=== PATIENT | female | born 1955 | race African-American/Black ===

== ENCOUNTER 2017-06-01 15:07 | Emergency (ER) | payer MEDICARE ==
--- NOTE | 2017-06-01 19:08 | RAD ---
TWO VIEWS CHEST: Date: 06-01-17 Comparison: 07-20-16 History: Cough, congestion. FINDINGS: No pneumothorax, pleural fluid, focal consolidation or alveolar edema. There is stable prominence of the cardiac silhouette and atherosclerotic calcification of the aortic arch. Mid left lung zone granuloma noted, stable. IMPRESSION: Stable appearance of the chest - no acute findings. POS: [facility]
== END 2017-06-01 17:49 | disposition home or self-care (01) ==
LOC: ERS 15:07
DX: J30.9 Allergic rhinitis, unspecified (principal); I10 Essential (primary) hypertension; F41.9 Anxiety disorder, unspecified; F31.9 Bipolar disorder, unspecified; F17.210 Nicotine dependence, cigarettes, uncomplicated; Z71.6 Tobacco abuse counseling; Z79.899 Other long term (current) drug therapy
CPT/HCPCS: 71046; 99406

== ENCOUNTER 2019-02-05 14:11 | Outpatient (CLI) | payer MEDICARE ==
--- NOTE | 2019-02-05 15:32 | BD ---
DEXA BONE DENSITY SCAN: COMPARISON: None HISTORY: Postmenopausal female undergoing screening for osteoporosis. FINDINGS: template L1 1.0, 910.9 L2 1.0, 590.3 L3 0.908 -1.6 L4 0.847 -1.9 total 0.967 -0.7 femoral neck 0.8, 600.1 total 1.0, 981.3 Lumbar Spine: BMD (g/cm2) L1 1.091 T-Score: 0.9 L2 1.059 T-Score: 0.3 L3 0.908 T-Score: -1.6 L4 0.847 T-Score: -1.9 L1-L4 0.967 T-Score: -0.7 Femoral Neck: 0.860 T-Score: 0.1 Total 1.098 T-Score: 1.3 FRAX-WHO fracture assessment tool is not reported as all T-scores are at or above -1.0. IMPRESSION: Normal DEXA bone density scan. Transcribed Date/Time: 02/05/2019 3:45 PM
== END 2019-02-05 14:12 | disposition home or self-care (01) ==
LOC: BICMAMMO 14:11
PROVIDERS: ATTEND Family Medicine
DX: Z13.820 Encounter for screening for osteoporosis (principal); Z78.0 Asymptomatic menopausal state
CPT/HCPCS: 77080

== ENCOUNTER 2020-08-13 18:32 | Observation (INO) | payer MEDICAID, MEDICARE ==
[2020-08-13 19:02] LABS: #Basophils 0.1 thou/uL (0.0-0.2); #Eosinphils 0.2 thou/uL (0.0-0.7); #Lymphocytes 2.5 thou/uL (1.20-3.40); #Monocytes 0.5 thou/uL (0.11-0.59); %Basophils 0.6 % (0.0-1.0); %Eosinophils 2.7 % (0.0-10.0); %Lymphocytes 26.6 % (21.0-51.0); %Neutrophils 65.1 % (42.0-75.0); Hemoglobin 13.9 g/dL (12.0-16.0); Mean Corpuscular Hemoglobin 30.6 pg (27.0-31.0); Mean Corpuscular Volume 92.8 fL (78.0-98.0); Platelet Count 390 thou/uL (130-400); RBC Distribution Width 12.8 % (11.5-14.5); Red Blood Cell (RBC) Count 4.55 mill/uL (4.20-5.40); White Blood Cell (WBC) Count 9.2 thou/uL (4.8-10.8)
[2020-08-13 19:25] LABS: ALT (SGPT) 9 U/L (8-55); AST (SGOT) 15 U/L (5-34); Albumin 3.9 g/dL (3.4-4.8); Alkaline Phosphatase 63 U/L (40-110); Anion Gap 15 mmol/L (10-20); BUN (Urea Nitrogen) 25 mg/dL (9.8-20.1); Bilirubin, Total 0.6 mg/dL (0.2-1.2); Calc. Creatinine Clearance 0 mL/min (70-130); Calcium 9.1 mg/dL (7.8-10.44); Carbon Dioxide 21 mmol/L (23-31); Chloride 108 mmol/L (98-107); Globulin 3.2 g/dL (2.4-3.5); Glucose 99 mg/dL (80-115); Lipase 42 U/L (8-78); Potassium 4.3 mmol/L (3.5-5.1); Protein, Total 7.1 g/dL (5.8-8.1); Sodium 140 mmol/L (136-145)
[2020-08-13] MEDS ORDERED: Nitroglycerin 0.4mg/Hour PATCH ONE (21:52)
[2020-08-13] MEDS ORDERED: Nitroglycerin 2% Ointment 1 INCH/1 GM Packet ONE (21:53)
[2020-08-13 22:35] LABS: Troponin I 0.027 ng/mL (< 0.028)
[2020-08-13 23:11] VITALS: BMI 43.2
[2020-08-13] MEDS ORDERED: Acetaminophen 325 MG TAB PO PRN (23:15)
[2020-08-13] MEDS ORDERED: Ondansetron ODT 4 MG TAB SL PRN (23:15)
[2020-08-13] MEDS: Ondansetron PF 4 MG/2 ML Vial IVP PRN (23:52)
[2020-08-14] MEDS ORDERED: Nitroglycerin 0.4 MG TAB (25 Tab Bottle) SL PRN (01:10)
[2020-08-14] MEDS ORDERED: Albuterol Sulfate 2.5 mg/3 ml Neb NEB PRN (01:22)
[2020-08-14] MEDS ORDERED: Aspirin Chewable 81 MG TAB PO SCH (01:30)
[2020-08-14] MEDS ORDERED: Sodium Chloride 0.9% 1,000 ML IV SCH (01:30)
[2020-08-14 01:37] LABS: Troponin I 0.012 ng/mL (< 0.028)
[2020-08-14 02:10] LABS: SARS-CoV-2 NAA Rapid Test Not Detected (NotDetected)
[2020-08-14 05:02] LABS: #Eosinphils 0.2 thou/uL (0.0-0.7); #Lymphocytes 2.6 thou/uL (1.20-3.40); #Monocytes 0.5 thou/uL (0.11-0.59); #Neutrophils 4.5 thou/uL (1.40-6.50); %Basophils 0.6 % (0.0-1.0); %Eosinophils 2.8 % (0.0-10.0); %Lymphocytes 33.2 % (21.0-51.0); %Monocytes 6.4 % (0.0-10.0); Hemoglobin 12.4 g/dL (12.0-16.0); Mean Corpuscular HGB CONC 31.7 g/dL (32.0-36.0); Mean Corpuscular Hemoglobin 29.6 pg (27.0-31.0); Mean Corpuscular Volume 93.4 fL (78.0-98.0); Mean Platelet Volume 8.2 fL (7.4-10.4); Platelet Count 326 thou/uL (130-400); RBC Distribution Width 12.8 % (11.5-14.5); Red Blood Cell (RBC) Count 4.19 mill/uL (4.20-5.40); White Blood Cell (WBC) Count 7.8 thou/uL (4.8-10.8)
[2020-08-14 05:22] LABS: Anion Gap 13 mmol/L (10-20); BUN (Urea Nitrogen) 24 mg/dL (9.8-20.1); Calc. Creatinine Clearance 66 mL/min (70-130); Calcium 8.8 mg/dL (7.8-10.44); Carbon Dioxide 24 mmol/L (23-31); Cardiac Risk 6.9 (Less than 4.5); Chloride 108 mmol/L (98-107); Cholesterol 199 mg/dl (< 200 Desired); Glucose 111 mg/dL (80-115); HDL Cholesterol 29 mg/dL (>60 Neg Risk); LDL Cholesterol, Calculated 133 mg/dL; Potassium 3.6 mmol/L (3.5-5.1); Sodium 141 mmol/L (136-145); Triglycerides 186 mg/dL (Less than 150)
[2020-08-14] MEDS ORDERED: Morphine 2 MG/ML VIAL SLOW IVP PRN (05:36)
[2020-08-14] MEDS: Ondansetron PF 4 MG/2 ML Vial IVP PRN (06:16)
[2020-08-14] MEDS ORDERED: Heparin 5,000 UNITS/ML VIAL SC SCH (09:00)
[2020-08-14] MEDS: Aspirin Chewable 81 MG TAB PO SCH ×2 (10:54→12:11)
[2020-08-14 12:28] VITALS: BP 145/75; TEMP 98.1
[2020-08-14] MEDS ORDERED: hydrALAZINE 25 MG TAB PO SCH (21:00)
== END 2020-08-14 14:59 | disposition home or self-care (01) ==
LOC: ERS 18:32 → 2SW 21:56
PROVIDERS: ADMIT Internal Medicine; ATTEND Internal Medicine
DX: R07.9 Chest pain, unspecified (principal); N17.9 Acute kidney failure, unspecified; R06.00 Dyspnea, unspecified; I10 Essential (primary) hypertension; F17.210 Nicotine dependence, cigarettes, uncomplicated; I08.3 Combined rheumatic disorders of mitral, aortic and tricuspid valves; Z66 Do not resuscitate; Z91.14 Patient's other noncompliance with medication regimen; Z79.899 Other long term (current) drug therapy; Z20.822 Contact with and (suspected) exposure to COVID-19
CPT/HCPCS: 36415; 71045; 78452; 80048; 80053; 80061; 83690; 84484; 85025; 93005; 93017; 93306; 94760; 96374; 96375; 96376; A9500; G0378; J0153; J2270; J2405; U0002; U0005

== ENCOUNTER 2021-09-12 12:32 | Emergency (ER) | payer MEDICARE, MEDICAID ==
[2021-09-12 14:42] LABS: #Basophils 0.1 thou/uL (0.0-0.2); #Eosinphils 0.1 thou/uL (0.0-0.7); #Lymphocytes 2.4 thou/uL (1.20-3.40); #Monocytes 0.3 thou/uL (0.11-0.59); #Neutrophils 3.7 thou/uL (1.40-6.50); %Basophils 1.2 % (0.0-1.0); %Eosinophils 1.8 % (0.0-10.0); %Lymphocytes 35.6 % (21.0-51.0); %Neutrophils 56.5 % (42.0-75.0); Hemoglobin 13.7 g/dL (12.0-16.0); Mean Corpuscular HGB CONC 31.3 g/dL (32.0-36.0); Mean Corpuscular Hemoglobin 30.4 pg (27.0-31.0); Mean Platelet Volume 8.8 fL (7.4-10.4); Platelet Count 333 thou/uL (130-400); RBC Distribution Width 12.8 % (11.5-14.5); White Blood Cell (WBC) Count 6.6 thou/uL (4.8-10.8)
[2021-09-12] MEDS ORDERED: hydrALAZINE 25 MG TAB ONE (14:55)
[2021-09-12 15:13] LABS: ALT (SGPT) 7 U/L (8-55); AST (SGOT) 9 U/L (5-34); Albumin 3.8 g/dL (3.4-4.8); Alkaline Phosphatase 62 U/L (40-110); Anion Gap 13 mmol/L (10-20); BUN (Urea Nitrogen) 29 mg/dL (9.8-20.1); Bilirubin, Total 0.5 mg/dL (0.2-1.2); Calc. Creatinine Clearance 0 mL/min (70-130); Carbon Dioxide 25 mmol/L (23-31); Chloride 110 mmol/L (98-107); Estimated GFR 34; Glucose 88 mg/dL (80-115); Lipase 69 U/L (8-78); Protein, Total 6.8 g/dL (5.8-8.1); Sodium 144 mmol/L (136-145)
== END 2021-09-12 15:41 | disposition home or self-care (01) ==
LOC: ERS 12:32
DX: I10 Essential (primary) hypertension (principal); F17.210 Nicotine dependence, cigarettes, uncomplicated; Z79.899 Other long term (current) drug therapy
CPT/HCPCS: 36415; 71045; 80053; 83690; 84484; 85025; 93005

== ENCOUNTER 2021-10-15 12:02 | Emergency (ER) | payer MEDICARE, MEDICAID | END 2021-10-15 14:46 | disposition home or self-care (01) | LOC: ERS 12:02 | DX: M19.011 Primary osteoarthritis, right shoulder (principal); M62.838 Other muscle spasm; I10 Essential (primary) hypertension; F17.210 Nicotine dependence, cigarettes, uncomplicated; Z79.899 Other long term (current) drug therapy ==

== ENCOUNTER 2021-12-11 19:06 | Emergency (ER) | payer OTHER, MEDICAID ==
[2021-12-11] MEDS ORDERED: Proparacaine 0.5% Opth 15 ML BOT ONE (20:37)
[2021-12-11] MEDS ORDERED: Fluorescein Opthalmic Strip ONE (20:37)
== END 2021-12-11 21:24 | disposition home or self-care (01) ==
LOC: ERS 19:06
DX: S05.01XA Injury of conjunctiva and corneal abrasion without foreign body, right eye, initial encounter (principal); I10 Essential (primary) hypertension; F17.210 Nicotine dependence, cigarettes, uncomplicated; X58.XXXA Exposure to other specified factors, initial encounter
CPT/HCPCS: 99283

== ENCOUNTER 2022-05-11 12:39 | Inpatient (IN) | payer OTHER, MEDICAID ==
[2022-05-11] MEDS ORDERED: Iopamidol 370 76% 100 ML VIAL ONE (12:51)
[2022-05-11] MEDS ORDERED: Morphine 4 MG/ML VIAL ONE (13:32)
[2022-05-11] MEDS ORDERED: Acetaminophen 500 MG TAB ONE (13:33)
[2022-05-11] MEDS ORDERED: Ondansetron ODT 4 MG TAB ONE (13:33)
[2022-05-11 13:53] LABS: #Lymphocytes 1.3 thou/uL (1.20-3.40); #Monocytes 0.2 thou/uL (0.11-0.59); #Neutrophils 5.5 thou/uL (1.40-6.50); %Basophils 0.6 % (0.0-1.0); %Eosinophils 0.6 % (0.0-10.0); %Lymphocytes 18.2 % (21.0-51.0); %Monocytes 3.3 % (0.0-10.0); %Neutrophils 77.3 % (42.0-75.0); Hemoglobin 13.3 g/dL (12.0-16.0); Mean Corpuscular HGB CONC 32.5 g/dL (32.0-36.0); Mean Corpuscular Hemoglobin 30.1 pg (27.0-31.0); Mean Corpuscular Volume 92.7 fl (78.0-98.0); Mean Platelet Volume 8.3 fL (7.4-10.4); Platelet Count 390 10x3/uL (130-400); RBC Distribution Width 13.1 % (11.5-14.5); Red Blood Cell (RBC) Count 4.43 mill/uL (4.20-5.40); White Blood Cell (WBC) Count 7.1 10x3/uL (4.8-10.8)
[2022-05-11 13:56] LABS: Actual Bicarbonate (HCO3v) 25 mEq/L (22-28); Base Excess 0.9 mEq/L (-2.0 to +3.0); Calcium, Ionized (venous) 1.06 mmol/L (1.16-1.32); Chloride (VBG) 105 mmol/L (98-106); Hemoglobin (Hb) 14.3 g/dL (11.7-16.1); Potassium (VBG) 3.55 mmol/L (3.70-5.30); Sodium 137.6 mmol/L (133-146); pH (venous) 7.43 (7.32-7.43)
[2022-05-11 14:08] LABS: Prothrombin Time 13.6 sec (12.0-14.7)
[2022-05-11 14:09] LABS: PTT 30.5 sec (22.9-36.1)
[2022-05-11 14:11] LABS: D-Dimer Test 0.46 *mcg/mL (0.27-0.43)
[2022-05-11 14:12] LABS: ALT (SGPT) Less than 7 U/L (8-55); AST (SGOT) 9 U/L (5-34); Albumin 3.9 g/dL (3.4-4.8); Alcohol Less than 10 mg/dL (Less than 10); Alkaline Phosphatase 55 U/L (40-110); Anion Gap 15 mmol/L (10-20); BUN (Urea Nitrogen) 27 mg/dL (9.8-20.1); Bilirubin, Total 0.6 mg/dL (0.2-1.2); Calc. Creatinine Clearance 0 mL/min (70-130); Calcium 8.9 mg/dL (7.8-10.44); Carbon Dioxide 23 mmol/L (23-31); Chloride 105 mmol/L (98-107); Estimated GFR 30; Globulin 2.7 g/dL (2.4-3.5); Glucose 93 mg/dL (80-115); Lipase 25 U/L (8-78); Potassium 3.6 mmol/L (3.5-5.1); Protein, Total 6.6 g/dL (5.8-8.1); Salicylate Less than 8.0 mg/dL (15.0-30.0); Sodium 139 mmol/L (136-145)
[2022-05-11 14:25] LABS: SARS-CoV-2 NAA Rapid Test Not Detected (NotDetected)
[2022-05-11] MEDS ORDERED: Labetalol HCl 100 MG/20 ML VIAL ONE (15:08)
[2022-05-11] MEDS ORDERED: Pantoprazole 40 MG VIAL ONE (15:08)
[2022-05-11 16:54] LABS: Bacteria/HPF 3+ HPF (None Seen); Bilirubin Negative (Negative); Blood, Urine 2+ (Negative); Clarity Clear (Clear); Glucose, Urine (Dipstick) Normal (Negative); Ketone, Urine Trace mg/dL (Negative); Leukocyte Negative Leu/uL (Negative); Nitrite Negative (Negative); Protein, Urine (Dipstick) 100 mg/dL (Neg-Trace); RBC/HPF 0-3 HPF (0-3); Specific Gravity, Urine 1.035 (1.002-1.036); Squamous Epithelial 0-3 HPF (0-3); Urobilinogen Normal mg/dL (Less than 2); WBC/HPF 0-3 HPF (0-3); pH, Urine 5.5 (5.0-9.0)
[2022-05-11] MEDS ORDERED: Ondansetron PF 4 MG/2 ML Vial IVP PRN (17:45)
[2022-05-11] MEDS ORDERED: Ondansetron ODT 4 MG TAB SL PRN (17:45)
[2022-05-11 18:29] VITALS: BMI 33.3
[2022-05-11] MEDS: Acetaminophen 325 MG TAB PO PRN (20:21)
[2022-05-12] MEDS: Acetaminophen 325 MG TAB PO PRN ×4 (00:40→19:50)
[2022-05-12] MEDS ORDERED: Ondansetron PF 4 MG/2 ML Vial IVP PRN (02:02)
[2022-05-12] MEDS: Ondansetron ODT 4 MG TAB PO PRN (02:42)
[2022-05-12 05:38] LABS: #Basophils 0.1 thou/uL (0.0-0.2); #Eosinphils 0.2 thou/uL (0.0-0.7); #Lymphocytes 2.1 thou/uL (1.20-3.40); #Monocytes 0.5 thou/uL (0.11-0.59); #Neutrophils 4.5 thou/uL (1.40-6.50); %Basophils 0.7 % (0.0-1.0); %Eosinophils 3.2 % (0.0-10.0); %Lymphocytes 28.4 % (21.0-51.0); %Monocytes 6.4 % (0.0-10.0); %Neutrophils 61.3 % (42.0-75.0); Mean Corpuscular HGB CONC 32.7 g/dL (32.0-36.0); Mean Corpuscular Volume 94.5 fl (78.0-98.0); Platelet Count 358 10x3/uL (130-400); RBC Distribution Width 13.2 % (11.5-14.5); Red Blood Cell (RBC) Count 3.87 mill/uL (4.20-5.40); White Blood Cell (WBC) Count 7.3 10x3/uL (4.8-10.8)
[2022-05-12 05:58] LABS: ALT (SGPT) Less than 7 U/L (8-55); AST (SGOT) 8 U/L (5-34); Albumin 3.4 g/dL (3.4-4.8); Alkaline Phosphatase 46 U/L (40-110); Anion Gap 14 mmol/L (10-20); BUN (Urea Nitrogen) 30 mg/dL (9.8-20.1); Bilirubin, Total 0.4 mg/dL (0.2-1.2); Calc. Creatinine Clearance 31 mL/min (70-130); Calcium 8.6 mg/dL (7.8-10.44); Carbon Dioxide 22 mmol/L (23-31); Chloride 104 mmol/L (98-107); Estimated GFR 21; Globulin 2.5 g/dL (2.4-3.5); Glucose 98 mg/dL (80-115); Potassium 3.9 mmol/L (3.5-5.1); Protein, Total 5.9 g/dL (5.8-8.1); Sodium 136 mmol/L (136-145)
[2022-05-12] MEDS: Pantoprazole 40 MG VIAL IVP SCH ×2 (08:34→19:50)
[2022-05-12] MEDS: Amlodipine 10 MG TAB PO SCH (08:34)
[2022-05-12] MEDS: Sodium Chloride 0.9% 1,000 ML IV SCH ×2 (08:35→19:50)
[2022-05-12] MEDS: cefTRIAXone\\ROCEPHIN 1 GM in Sodium Chloride 0.9% 100 ML IVPB SCH (13:10)
[2022-05-12] MEDS ORDERED: Bisacodyl 10 MG SUPP PR PRN (16:38)
[2022-05-12] MEDS ORDERED: Polyethylene Glycol 3350 17 GM Packet PO PRN (16:38)
[2022-05-13] MEDS ORDERED: hydrALAZINE 25 MG TAB PO SCH ×2 (04:15→09:00)
[2022-05-13] MEDS ORDERED: Mag-Al 1200 mg/1200 mg/30 ML UDCUP PO SCH (04:15)
[2022-05-13 05:22] LABS: #Eosinphils 0.3 thou/uL (0.0-0.7); #Lymphocytes 1.8 thou/uL (1.20-3.40); #Monocytes 0.3 thou/uL (0.11-0.59); #Neutrophils 2.6 thou/uL (1.40-6.50); %Basophils 0.8 % (0.0-1.0); %Eosinophils 5.4 % (0.0-10.0); %Lymphocytes 36.5 % (21.0-51.0); %Monocytes 6.1 % (0.0-10.0); %Neutrophils 51.2 % (42.0-75.0); Hemoglobin 11.7 g/dL (12.0-16.0); Mean Corpuscular HGB CONC 32.7 g/dL (32.0-36.0); Mean Corpuscular Hemoglobin 30.6 pg (27.0-31.0); Mean Corpuscular Volume 93.5 fl (78.0-98.0); Mean Platelet Volume 7.8 fL (7.4-10.4); Platelet Count 335 10x3/uL (130-400); Red Blood Cell (RBC) Count 3.83 mill/uL (4.20-5.40)
[2022-05-13 05:47] LABS: Anion Gap 12 mmol/L (10-20); BUN (Urea Nitrogen) 25 mg/dL (9.8-20.1); Calc. Creatinine Clearance 37 mL/min (70-130); Calcium 8.6 mg/dL (7.8-10.44); Carbon Dioxide 23 mmol/L (23-31); Chloride 112 mmol/L (98-107); Estimated GFR 27; Glucose 87 mg/dL (80-115); Sodium 143 mmol/L (136-145)
[2022-05-13] MEDS ORDERED: Polyethylene Glycol 3350 17 GM Packet PO SCH (09:00)
[2022-05-13] MEDS: Acetaminophen 325 MG TAB PO PRN (09:08)
[2022-05-13] MEDS: Amlodipine 10 MG TAB PO SCH (09:09)
[2022-05-13] MEDS: Pantoprazole 40 MG VIAL IVP SCH (09:10)
[2022-05-13] MEDS: Ondansetron ODT 4 MG TAB PO PRN (09:20)
[2022-05-13 12:09] VITALS: BP 147/67; TEMP 97.9
[2022-05-13] MEDS: cefTRIAXone\\ROCEPHIN 1 GM in Sodium Chloride 0.9% 100 ML IVPB SCH (13:16)
== END 2022-05-13 14:11 | disposition home or self-care (01) | DRG 683 ==
LOC: ERS 12:39 → 2SW 16:13 → OBSVTOIN 05-12 17:33
PROVIDERS: ADMIT Internal Medicine; ATTEND Internal Medicine
DX: N17.9 Acute kidney failure, unspecified (principal); N39.0 Urinary tract infection, site not specified; R10.13 Epigastric pain; Z20.822 Contact with and (suspected) exposure to COVID-19; I25.10 Atherosclerotic heart disease of native coronary artery without angina pectoris; I10 Essential (primary) hypertension; K76.0 Fatty (change of) liver, not elsewhere classified; F17.210 Nicotine dependence, cigarettes, uncomplicated; K21.9 Gastro-esophageal reflux disease without esophagitis; F31.9 Bipolar disorder, unspecified; Z87.442 Personal history of urinary calculi; Z79.899 Other long term (current) drug therapy; Z90.710 Acquired absence of both cervix and uterus
CPT/HCPCS: 36415; 71045; 71275; 74174; 76700; 80048; 80053; 80307; 81003; 81015; 82274; 82570; 82805; 83605; 83690; 83735; 83880; 84300; 84443; 84484; 85025; 85379; 85610; 85730; 86850; 86900; 86901; 87040; 87086; 93005; 96365; 96374; 96375; 96376; C9113; G0378; J0696; J2270; J2405; J3490; J7050; Q0162; Q9967; U0002